=== PATIENT | male | born 1950 | race Caucasian/White ===

== ENCOUNTER → 2016-12-04 | Day surgery (SDC) | payer MEDICARE ==
[~2016-12-04] VITALS: Ht 172.7 cm; Wt 73.0 kg
[~2016-12-04] MED LIST: ASPIRIN 8181 MG PO; ATENOLOL25 MG PO; CIPROFLOXACN250 MG PO; CIPROFLOXACN500 MG PO; DILAUDID 2MG2 MG/TA1 PO; FLOMAX0.4 M1 PO; KENALOG-4040 MG/ML IC; LIPITOR10 MG PO; PERCOCET 10/31 COMBO PO
[2016-12-04 19:53] VITALS: BP 135/75
== END ==
LOC: ORM 10:30
PROVIDERS: ATTEND Orthopaedic Surgery
PROC: 0LQ14ZZ Repair Right Shoulder Tendon, Percutaneous Endoscopic Approach (ICD-10-PCS; principal; 2016-12-04)
PROC: 0RNJ4ZZ Release Right Shoulder Joint, Percutaneous Endoscopic Approach (ICD-10-PCS; 2016-12-04)
DX: M75.111 Incomplete rotator cuff tear or rupture of right shoulder, not specified as traumatic (principal); S46.211A Strain of muscle, fascia and tendon of other parts of biceps, right arm, initial encounter; M75.51 Bursitis of right shoulder; M94.211 Chondromalacia, right shoulder; X58.XXXA Exposure to other specified factors, initial encounter

== ENCOUNTER 2016-12-06 06:57 | Emergency (ER) | payer MEDICARE ==
[~2016-12-06] VITALS: Ht 172.7 cm; Wt 85.0 kg
[~2016-12-06 06:57] MED LIST changes: -FLOMAX0.4 M1 PO
[2016-12-06 08:15] LABS: HEMATOCRIT 41.3 % (39.0-50.0); HEMOGLOBIN 13.8 g/dl (14.0-18.0); IMMATURE GRANULOCYTES 0.4 % (0.0-1.0); MEAN CELL VOLUME 90.4 fL CALC (80.0-100.0); MEAN CORPUSCULAR HGB 30.2 pG CALC (26.0-32.0); MEAN CORPUSCULAR HGB CONC 33.4 g/L CALC (32.0-36.0); NEUT# 11.96 thou/uL (1.82-7.42); RED BLOOD COUNT 4.57 mill/uL (4.70-6.10); RED CELL DISTRI WIDTH 13.4 % (11.5-15.5)
[2016-12-06 08:23] LABS: ALBUMIN 4.3 g/dL (3.2-5.0); ALKALINE PHOSPHATASE 122 u/l (38-126); AMYLASE 42 u/l (30-110); ANION GAP 16 (6-22 (CALC)); BILIRUBIN, TOTAL 0.7 mg/dL (0.0-1.4); BUN 9 mg/dL (8-23); BUN/CREATININE RATIO 13 (12-20 (CALC)); CALCIUM 9.8 mg/dL (8.4-10.2); CARBON DIOXIDE 26 mmol/l (22-30); CHLORIDE 99 mmol/l (95-108); CREATININE 0.7 mg/dL (0.7-1.3); GFR > 60 ML/MIN (>=60 (CALC)); GFR FOR AFR.AMER. > 60 ML/MIN (>=60 (CALC)); GLUCOSE 124 mg/dL (82-115); LIPASE 62 u/l (23-300); POTASSIUM 4.7 mmol/l (3.5-5.1); SGOT/AST 23 u/l (19-48); SGPT/ALT 20 u/l (11-66); SODIUM 136 mmol/l (137-146); TOTAL PROTEIN 7.5 g/dL (6.3-8.2)
[2016-12-06 09:23] LABS: URINE BILIRUBIN - DIPSTICK NEGATIVE (NEGATIVE); URINE BLOOD DIPSTICK TRACE-INTACT (NEGATIVE); URINE CLARITY CLEAR; URINE COLOR YELLOW; URINE GLUCOSE - DIPSTICK NEGATIVE (NEGATIVE); URINE KETONE TRACE mg/dL (NEGATIVE); URINE LEUK ESTERASE NEGATIVE (NEGATIVE); URINE NITRITE - DIPSTICK NEGATIVE (Negative); URINE PH 5.5 (4.5-8.0); URINE PROTEIN - DIPSTICK NEGATIVE (NEG-TRACE); URINE UROBILINOGEN - DIPSTICK 0.2 E.U./dL (0.2)
[2016-12-06 10:16] VITALS: BP 138/72
[2016-12-06] MEDS ORDERED: CIPROFLOXACN500 MG PO (18:48)
== END 2016-12-06 10:30 | disposition home or self-care (01) ==
LOC: ED 06:57
PROVIDERS: Emergency Medicine
PROC: 0T9B70Z Drainage of Bladder with Drainage Device, Via Natural or Artificial Opening (ICD-10-PCS; principal; 2016-12-06)
PROC: 0T9B70Z Drainage of Bladder with Drainage Device, Via Natural or Artificial Opening (ICD-10-PCS; 2016-12-06)
DX: R33.9 Retention of urine, unspecified (principal); R10.30 Lower abdominal pain, unspecified; R10.33 Periumbilical pain
CPT/HCPCS: Q9967

== ENCOUNTER 2016-12-06 18:08 | Emergency (ER) | payer MEDICARE ==
[~2016-12-06] VITALS: Ht 172.7 cm; Wt 80.0 kg
[2016-12-06] MEDS ORDERED: CIPROFLOXACN500 MG PO (18:48)
[2016-12-06 18:55] VITALS: BP 180/112
== END 2016-12-06 19:11 | disposition home or self-care (01) ==
LOC: ED 18:08
PROC: 0T2BX0Z Change Drainage Device in Bladder, External Approach (ICD-10-PCS; principal; 2016-12-06)
DX: R33.9 Retention of urine, unspecified (principal)

== ENCOUNTER 2016-12-10 13:10 | Emergency (ER) | payer MEDICARE ==
[~2016-12-10] VITALS: Ht 172.7 cm; Wt 82.0 kg
[2016-12-10] MEDS ORDERED: FLOMAX0.4 M1 PO (16:00)
[2016-12-10 16:15] VITALS: BP 131/84
== END 2016-12-10 16:15 | disposition home or self-care (01) ==
LOC: ED 13:10
DX: R31.9 Hematuria, unspecified (principal); R33.9 Retention of urine, unspecified

== ENCOUNTER → 2017-01-01 | Day surgery (SDC) | payer MEDICARE ==
[~2017-01-01] VITALS: Ht 172.7 cm; Wt 81.6 kg
[~2017-01-01] MED LIST changes: +FLOMAX0.4 M1 PO; +LEVAQUIN500 MG PO; +PYRIDIUM200 MG PO; +TAMSULOSIN0.4 MG PO; +TRAMADOL HYDROC50 MG PO
[2017-01-01 13:17] VITALS: BP 132/83
== END | disposition home health service (06) ==
LOC: ORM 07:24
PROVIDERS: ATTEND Urology
PROC: 0V508ZZ Destruction of Prostate, Via Natural or Artificial Opening Endoscopic (ICD-10-PCS; principal; 2017-01-01)
PROC: 0TCB8ZZ Extirpation of Matter from Bladder, Via Natural or Artificial Opening Endoscopic (ICD-10-PCS; 2017-01-01)
DX: N40.1 Benign prostatic hyperplasia with lower urinary tract symptoms (principal); R33.8 Other retention of urine; R35.1 Nocturia; R39.12 Poor urinary stream; N21.0 Calculus in bladder; T83.518A Infection and inflammatory reaction due to other urinary catheter, initial encounter; N30.91 Cystitis, unspecified with hematuria; Y84.6 Urinary catheterization as the cause of abnormal reaction of the patient, or of later complication, without mention of misadventure at the time of the procedure
CPT/HCPCS: J1956